=== PATIENT | female | born 1945 | race Caucasian/White ===

== ENCOUNTER 2018-07-20 09:45 | Outpatient (CLI) | payer MEDICARE ==
[~2018-07-20 09:45] MED LIST: Gadobenate Dimeglumine 529 MG/1 ML (20ML VIAL) ONE
--- NOTE | 2018-07-20 11:33 | RAD ---
XR Lumbar Spine 2 Or 3 View HISTORY: Back pain. Postop. COMPARISON: 08/20/2016 study. FINDINGS: These are flexion and extension views. The vertebral bodies maintain normal height. There i s moderate degenerative disc narrowing at L2-3 and L3-4. Bilateral pedicle screws are seen at L4-5. There is no abnormal motion on the flexion or extension views. Mild disc narrowing also seen at the L 5-S1. IMPRESSION: Postop and arthritic changes of the spine.
--- NOTE | 2018-07-20 11:34 | MRI ---
MRI Lumbar Spine with and without contrast: HISTORY: Pain COMPARISON: None FINDINGS: Conus medullaris is normal in morphology and terminates at the L2 level. Degenerative appearing marrow edema at the inferior L2 and superior L3 endplates favors Modic type I degenerative signal alteration. There is multilevel Schmorl's node formation throughout the imaged lower thoracic, and lumbar spine. Within limitations, no mass-producing enhancement of the vertebral canal. There is limited assessment at the operative site due to susceptibility artifact. Evidence of posterior metallic fusion with bilateral pedicle screws traversing L4 and L5 segments. Incidental note of cyst of the medial left kidney, exophytic with probable thin internal septation, i ncompletely evaluated. Punctate T2 hyperintensities seen at lower pole of right kidney too small to definitively characterize. Incidental note of disc protrusion at T10-11, right paracentral in location with mild effacement of t he ventral thoracic spinal cord. L1-2:No significant stenosis L2-3:Mild narrowing of central canal due to broad-based disc osteophyte. There is moderate right fora paula stenosis. Minimal left neural foraminal narrowing. L3-4:Severe central canal stenosis as a result of broad-based disc osteophyte and bilateral degenerat janina facet hypertrophy and redundancy of ligamentum flavum. There is moderate bilateral neural foraminal narrowing L4-5:Trace spondylolisthesis. Broad-based disc osteophyte effaces ventral thecal sac. There is slight crowding of the traversing right L5 nerve root which is mildly pronounced in volume. This could relate to an associated neuritis. L5-S1:Broad-based disc osteophyte with mild effacement of ventral thecal sac. There is bilateral dege nerative facet hypertrophy. Mild narrowing of the thecal sac and mild left neural foraminal narrowing. 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 This is most pronounced at the L3-4 level with severe central canal stenosis. Incidental right paracentral T10-11 level disc protrusion with mild ventral cord effacement. Transcribed Date/Time: 07/20/2018 11:53 AM
== END 2018-07-20 09:46 | disposition home or self-care (01) ==
LOC: SCSMRI 09:45
PROVIDERS: ATTEND Neurological Surgery
DX: M51.36 Other intervertebral disc degeneration, lumbar region (principal); M47.816 Spondylosis without myelopathy or radiculopathy, lumbar region; M48.061 Spinal stenosis, lumbar region without neurogenic claudication; M51.24 Other intervertebral disc displacement, thoracic region; Z98.890 Other specified postprocedural states
CPT/HCPCS: 72100; 72158; 82565; A9577